=== PATIENT | male | born 1950 | race Caucasian/White ===

== ENCOUNTER 2018-01-05 07:11 | Day surgery (SDC) | payer MEDICARE, BC ==
[2018-01-05] MEDS ORDERED: Sodium Chloride 0.9% 1,000 ML IV SCH (07:30)
[2018-01-05] MEDS ORDERED: Midazolam 1 MG/ML 2 ML SDV ONE (08:00)
[2018-01-05] MEDS ORDERED: Propofol 200 MG/20 ML SDV ONE (08:00)
[2018-01-05] MEDS ORDERED: fentaNYL 100 MCG/2 ML SDV ONE (08:00)
--- NOTE | 2018-01-05 09:18 | OR ---
DATE OF PROCEDURE: 01/05/2018 PROCEDURE PERFORMED: Colonoscopy. FINDINGS: 1. Descending colon polyps approximately 5 mm, completely removed with cold biopsy forceps. 2. Sigmoid colon polyp approximately 5 mm, completely removed using cold biopsy forceps. 3. Rectal polyp, approximately 5 mm, completely removed using cold biopsy forceps. 4. Diverticulosis, very mild. COMPLICATIONS: None. COFFEE ROASTER HELPER: None. PREOPERATIVE DIAGNOSIS: Screening colonoscopy. POSTOPERATIVE DIAGNOSIS: Screening colonoscopy. RISKS: Risks, benefits, alternatives, and limitations including, but not limited to infection, bleeding, and perforation explained to the patient who wished to proceed. PROCEDURE IN DETAIL: The patient was placed in left lateral decubitus position. Digital rectal exam was performed without abnormality. The scope was introduced and advanced atraumatically to the ileocecal valve. The scope was brought to the ascending, transverse, descending colon, and retroflexed. The patient has very mild diverticulosis. No evidence of abnormal bleeding or other abnormalities. The aforementioned polyps were identified and completely removed. Bunny Enriquez MD /[id number]
== END 2018-01-05 10:05 | disposition home or self-care (01) ==
LOC: JP.SDS 07:11
PROVIDERS: ATTEND Surgery
DX: Z12.11 Encounter for screening for malignant neoplasm of colon (principal); D12.5 Benign neoplasm of sigmoid colon; K63.5 Polyp of colon; K62.1 Rectal polyp; K57.30 Diverticulosis of large intestine without perforation or abscess without bleeding; I10 Essential (primary) hypertension; I25.2 Old myocardial infarction; I65.23 Occlusion and stenosis of bilateral carotid arteries; E11.9 Type 2 diabetes mellitus without complications; E78.5 Hyperlipidemia, unspecified; F17.200 Nicotine dependence, unspecified, uncomplicated
CPT/HCPCS: 45380; J2250; J2704; J3010; J7030; 88305

== ENCOUNTER 2021-01-13 06:27 | Day surgery (SDC) | payer MEDICARE, BC ==
[2021-01-13] MEDS ORDERED: Sodium Chloride 0.9% 1,000 ML IV SCH (07:00)
[2021-01-13] MEDS ORDERED: Propofol 200 MG/20 ML SDV ONE (07:25)
[2021-01-13] MEDS ORDERED: fentaNYL 100 MCG/2 ML SDV ONE (07:26)
[2021-01-13] MEDS ORDERED: Midazolam 1 MG/ML 2 ML SDV ONE (07:26)
--- NOTE | 2021-01-13 08:41 | OR ---
DATE OF PROCEDURE: 01/13/2021 SURGEON: Bunny Enriquez MD PROCEDURE: Colonoscopy. FINDINGS: Rectal polyp, approximately 8 mm, completely removed using hot snare wire device. COMPLICATION: None. EVAPORATOR HELPER: None. ANESTHESIA: MAC. PREOPERATIVE DIAGNOSIS: Screening colonoscopy. POSTOPERATIVE DIAGNOSIS: Screening colonoscopy. RISKS: Risks, benefits, alternatives, and limitations including, but not limited to infection, bleeding, perforation, false positives and false negatives were explained to the patient and he wished to proceed. PROCEDURE IN DETAIL: The patient was placed in left lateral decubitus position. Digital rectal exam was performed without abnormality. Scope was introduced and advanced atraumatically to the ileocecal valve. A photo was taken. The scope was brought back to the ascending, transverse, descending colon, and retroflexed. The aforementioned polyp was identified and completely removed. Greater than 8 minutes was spent removing the scope. Prep was acceptable, approximately 90% of luminal surface could be seen. The patient tolerated the procedure well. Bunny Enriquez MD /[id number]
== END 2021-01-13 09:14 | disposition home or self-care (01) ==
LOC: JP.SDS 06:27
PROVIDERS: ATTEND Surgery
DX: Z12.11 Encounter for screening for malignant neoplasm of colon (principal); C7A.8 Other malignant neuroendocrine tumors; I10 Essential (primary) hypertension; I25.10 Atherosclerotic heart disease of native coronary artery without angina pectoris; I25.2 Old myocardial infarction; E11.9 Type 2 diabetes mellitus without complications; F17.200 Nicotine dependence, unspecified, uncomplicated; Z01.812 Encounter for preprocedural laboratory examination; Z20.822 Contact with and (suspected) exposure to COVID-19
CPT/HCPCS: J2250; J2704; J3010; J7030; U0002

== ENCOUNTER 2021-02-02 08:42 | Day surgery (SDC) | payer MEDICARE, BC ==
[2021-02-02] MEDS ORDERED: fentaNYL 100 MCG/2 ML SDV ONE (09:01)
[2021-02-02] MEDS ORDERED: Midazolam 1 MG/ML 2 ML SDV ONE (09:01)
[2021-02-02] MEDS ORDERED: Propofol 200 MG/20 ML SDV ONE (09:01)
[2021-02-02] MEDS: Sodium Chloride 0.9% 1,000 ML IV SCH (09:45)
[2021-02-02 09:48] LABS: CORONAVIRUS COVID-19 NAA NEGATIVE (NEGATIVE)
--- NOTE | 2021-02-03 08:16 | OR ---
DATE OF PROCEDURE: 02/02/2021 SURGEON: Bunny Enriquez MD PROCEDURE: Colonoscopy. FINDINGS: 1. Rectal polyp #1. 2. Rectal biopsy . COMPLICATIONS: None. CHARGE HAND: None. ANESTHESIA: MAC. PREOPERATIVE DIAGNOSIS: History of neuroendocrine tumor. POSTOPERATIVE DIAGNOSIS: History of neuroendocrine tumor. RISKS: Risks, benefits, alternatives, and limitations including, but not limited to infection, bleeding, perforation, false positives and false negatives were explained to the patient who wished to proceed. PROCEDURE IN DETAIL: The patient was placed in left lateral decubitus position. Digital rectal exam was performed without abnormality. Scope was introduced and advanced atraumatically to the ileocecal valve. A photo was taken of this. Scope was brought back to the ascending, transverse, descending colon, and retroflexed. Additional rectal polyp was identified and labeled as a rectal polyp #1. The area most likely where the neuroendocrine tumor was biopsied was removed. No other abnormalities were noted. The patient again had marginal prep in the sigmoid area, which would preclude possible evaluation of polyps less than 5 mm due to solid and liquid stool remaining. No abnormalities on retroflexion. Greater than 8 minutes was spent removing the scope. The patient tolerated the procedure well. Bunny Enriquez MD /[id number]
== END 2021-02-02 12:55 | disposition home or self-care (01) ==
LOC: JP.SDS 08:42
PROVIDERS: ATTEND Surgery
DX: K62.1 Rectal polyp (principal); C7A.8 Other malignant neuroendocrine tumors; F17.200 Nicotine dependence, unspecified, uncomplicated; I10 Essential (primary) hypertension; I25.10 Atherosclerotic heart disease of native coronary artery without angina pectoris; E11.9 Type 2 diabetes mellitus without complications; Z01.812 Encounter for preprocedural laboratory examination; Z20.822 Contact with and (suspected) exposure to COVID-19
CPT/HCPCS: 0241U; J2250; J2704; J3010; J7030

== ENCOUNTER 2024-06-06 06:15 | Day surgery (SDC) | payer MEDICARE, BC ==
[2024-06-06] MEDS ORDERED: fentaNYL 100 MCG/2 ML SDV ONE (07:14)
[2024-06-06] MEDS ORDERED: Propofol 200 MG/20 ML SDV ONE (07:15)
[2024-06-06] MEDS: Lactated Ringers 1,000 ML IV SCH (07:26)
== END 2024-06-06 09:12 | disposition home or self-care (01) ==
LOC: JP.SDS 06:15
PROVIDERS: ATTEND Surgery
DX: Z12.11 Encounter for screening for malignant neoplasm of colon (principal); D12.5 Benign neoplasm of sigmoid colon; I10 Essential (primary) hypertension; E11.9 Type 2 diabetes mellitus without complications; I25.10 Atherosclerotic heart disease of native coronary artery without angina pectoris; I25.2 Old myocardial infarction; Z95.5 Presence of coronary angioplasty implant and graft
CPT/HCPCS: 00811; 45385; 88305; J2704; J3010; J7120

== ENCOUNTER 2024-10-12 13:11 | Inpatient (IN) | payer MEDICARE, BC ==
[2024-10-12] MEDS ORDERED: Ondansetron 4 MG Tab.DIS PO PRN (15:15)
[2024-10-17] MEDS: Sennosides/Docusate Sodium 50-8.6 MG Tab PO PRN (07:26)
[2024-10-17] MEDS: Magnesium Hydroxide 400 MG/5 ML Susp 30 ML Cup PO PRN (08:59)
[2024-10-19] MEDS: Sennosides/Docusate Sodium 50-8.6 MG Tab PO SCH (12:17)
[2024-10-21] MEDS: Sennosides/Docusate Sodium 50-8.6 MG Tab PO SCH (20:02)
== END 2024-10-23 11:02 | disposition home or self-care (01) | DRG 948 ==
LOC: JP.MS 13:11
PROVIDERS: ADMIT Internal Medicine; ATTEND Internal Medicine
DX: R53.1 Weakness (principal); E44.0 Moderate protein-calorie malnutrition; Z66 Do not resuscitate; C32.9 Malignant neoplasm of larynx, unspecified; H91.90 Unspecified hearing loss, unspecified ear; H54.7 Unspecified visual loss; I25.10 Atherosclerotic heart disease of native coronary artery without angina pectoris; E78.00 Pure hypercholesterolemia, unspecified; I10 Essential (primary) hypertension; I25.2 Old myocardial infarction; F41.9 Anxiety disorder, unspecified; F32.A Depression, unspecified; E11.9 Type 2 diabetes mellitus without complications; Z86.16 Personal history of COVID-19; Z95.5 Presence of coronary angioplasty implant and graft; Z79.84 Long term (current) use of oral hypoglycemic drugs; Z79.82 Long term (current) use of aspirin; Z79.899 Other long term (current) drug therapy; Z98.890 Other specified postprocedural states; Z68.20 Body mass index [BMI] 20.0-20.9, adult
CPT/HCPCS: 92610-GN; 97110-GO; 97110-GP; 97112-GP; 97162-GP; 97165-GO; 97530-GP; 99305; 99309; 99315; A9270-GY